=== PATIENT | female | born 2000 | race African-American/Black ===

== ENCOUNTER 2024-03-11 04:58 | Emergency (ER) | payer MEDICAID, OTHER ==
[~2024-03-11] VITALS: Ht 165.1 cm; Wt 64.0 kg
[2024-03-11 05:07] VITALS: BP 118/79; PULSE 84; RESP 16; TEMP 98.4; O2SAT 98
[2024-03-11] MEDS ORDERED: TOPUD PO (05:16)
[2024-03-11] MEDS: METOCLOPRAMIDE HCL 10MG TABLET PO ONE (05:22)
[2024-03-11] MEDS: ACETAMINOPHEN 325MG TABLET PO ONE (05:22)
== END 2024-03-11 05:35 | disposition home or self-care (01) ==
LOC: ER 04:58
DX: R51.9 Headache, unspecified (principal); R10.9 Unspecified abdominal pain
CPT/HCPCS: 99283; J8597

== ENCOUNTER 2024-03-11 05:52 | Emergency (ER) | payer MEDICAID, OTHER ==
[~2024-03-11] VITALS: Ht 165.1 cm; Wt 69.0 kg
[~2024-03-11 05:52] MED LIST: TOPUD PO
[2024-03-11 06:28] VITALS: BP 145/85; PULSE 90; RESP 20; TEMP 98.5; O2SAT 98
[2024-03-11 06:52] LABS: BASOPHILS % 0.4 % (0.0-2.0); EOSINOPHILS % 0.1 % (0.0-5.0); HEMATOCRIT. 43.3 % (36.0-48.0); HEMOGLOBIN. 14.9 g/dL (12.0-16.0); LYMPHOCYTES % 14.3 % (20.0-50.0); MEAN CORPUSCULAR HEMOGLOBIN 31.9 pg (28.0-32.0); MEAN CORPUSCULAR HGB CONC 34.4 g/dL (31.0-37.0); MEAN CORPUSCULAR VOLUME 92.6 fL (81.0-99.0); MEAN PLATELET VOLUME 9.3 fl (7.4-10.4); MONOCYTES % 8.5 % (2.0-8.0); NEUTROPHILS % 76.7 % (40.0-76.0); PLATELET 260 x1000/uL (130-400); RED BLOOD CELL COUNT 4.67 mill/uL (4.2-5.4); RED CELL DISTRIBUTION WIDTH 14.8 % (11.6-14.6)
[2024-03-11 07:11] LABS: CHLORIDE 104 mEq/L (98-107); POTASSIUM 3.1 mEq/L (3.5-5.1); SODIUM 141 mEq/L (136-145)
[2024-03-11 07:12] LABS: CARBON DIOXIDE 19 mEq/L (21-32)
[2024-03-11 07:13] LABS: CALCIUM 10.4 mg/dL (8.7-10.4)
[2024-03-11 07:15] LABS: HCG SCREEN NEGATIVE
[2024-03-11 07:17] LABS: CREATININE 1.1 mg/dL (0.6-1.0); GLUCOSE 106 mg/dL (70-105)
[2024-03-11 07:18] LABS: ETHANOL BLOOD 77 mg/dL (<10); UREA NITROGEN BLOOD 6 mg/dL (9-23)
== END 2024-03-11 06:16 | disposition left against medical advice (07) ==
LOC: ER 05:52
DX: R10.9 Unspecified abdominal pain (principal); R51.9 Headache, unspecified
CPT/HCPCS: 36415; 80048; 80320; 84703; 85025; 99283; G0480

== ENCOUNTER 2025-06-22 09:32 | Emergency (ER) | payer BC, MEDICAID ==
[~2025-06-22] VITALS: Ht 154.9 cm; Wt 59.0 kg
[2025-06-22 09:35] VITALS: BP 134/85; PULSE 69; RESP 16; TEMP 37.5; O2SAT 99
== END 2025-06-22 10:47 | disposition left against medical advice (07) ==
LOC: ER 09:32
DX: R11.2 Nausea with vomiting, unspecified (principal); Z53.21 Procedure and treatment not carried out due to patient leaving prior to being seen by health care provider